=== PATIENT | female | born 1995 | race Caucasian/White ===

== ENCOUNTER 2023-12-26 12:04 | Emergency (ER) | payer OTHER ==
[~2023-12-26] VITALS: Ht 162.6 cm; Wt 77.1 kg
[2023-12-26 12:05] VITALS: BP_SYST 114; PULSE 67; RESP 18; TEMP 97.8; O2SAT 98
[2023-12-26 12:54] LABS: BASOPHILS % (AUTO) 0.5 % (0.0-2.0); EOSINOPHILS # (AUTO) 0.1 K/uL (0.0-0.4); EOSINOPHILS % (AUTO) 1.2 % (0.0-4.0); HEMATOCRIT 37.7 % (36-48); HEMOGLOBIN 13.1 g/dL (12.0-16.0); LYMPHOCYTES # (AUTO) 2.3 K/uL (1.0-5.5); LYMPHOCYTES % (AUTO) 43.2 % (20.5-51.5); MEAN CORPUSCULAR HEMOGLOBIN 32 pg (27-31); MEAN CORPUSCULAR HGB CONC 35 % (32-36); MEAN CORPUSCULAR VOLUME 91 fL (79.0-98.0); MONOCYTES # (AUTO) 0.3 K/uL (0.0-1.0); MONOCYTES % (AUTO) 5.7 % (1.7-9.3); NEUTROPHILS # (AUTO) 2.6 K/uL (1.8-7.7); NEUTROPHILS % (AUTO) 49.4 % (40.0-70.0); PLATELET COUNT (AUTO) 266 K/uL (130-430); RED BLOOD CELL COUNT(AUTO) 4.14 MIL/uL (4.2-6.2); RED CELL DISTRIBUTION WIDTH 13.1 % (9.0-15.0); WHITE BLOOD COUNT (AUTO) 5.3 K/uL (4.8-10.8)
[2023-12-26 13:10] LABS: CALCIUM 8.7 mg/dL (8.4-11.0); CREATININE 0.7 mg/dL (0.55-1.30); POTASSIUM 3.8 mmol/L (3.5-5.1)
[2023-12-26 13:14] LABS: PROTHROMBIN TIME 9.9 SECS (9.5-12.5)
[2023-12-26] MEDS ORDERED: DOCU-144 PO (14:58)
[2023-12-26 15:10] VITALS: BP_SYST 119; PULSE 75; RESP 18; TEMP 97; O2SAT 98
== END 2023-12-26 15:09 | disposition home or self-care (01) ==
LOC: SED 12:04
DX: K92.2 Gastrointestinal hemorrhage, unspecified (principal); Z79.899 Other long term (current) drug therapy
CPT/HCPCS: 36415; 76376; 80048; 81025; 85025; 85610-TC; 85730-TC; 86886; 86900; 86901; 99284

== ENCOUNTER 2024-03-30 22:28 | Emergency (ER) | payer OTHER ==
[~2024-03-30] VITALS: Ht 162.6 cm; Wt 54.4 kg
[~2024-03-30 22:28] MED LIST: DOCU-144 PO
[2024-03-30 22:41] VITALS: BP_SYST 127; PULSE 77; RESP 16; TEMP 97.8; O2SAT 99
[2024-03-31] MEDS: ACETAMINOPHEN 325 MG TABLET PO ONE (00:06)
[2024-03-31] MEDS: IBUPROFEN 600 MG TABLET PO ONE (00:07)
[2024-03-31] MEDS ORDERED: CYCL10TA24 PO (01:45)
[2024-03-31 01:54] VITALS: BP_SYST 135; PULSE 74; RESP 16; TEMP 97.8; O2SAT 99
== END 2024-03-31 01:56 | disposition home or self-care (01) ==
LOC: SED 22:28
DX: S39.012A Strain of muscle, fascia and tendon of lower back, initial encounter (principal); S76.912A Strain of unspecified muscles, fascia and tendons at thigh level, left thigh, initial encounter; E03.9 Hypothyroidism, unspecified
CPT/HCPCS: 72110; 73552; 81025; 99284

== ENCOUNTER 2024-05-05 11:39 | Emergency (ER) | payer OTHER ==
[~2024-05-05] VITALS: Ht 162.6 cm; Wt 74.8 kg
[~2024-05-05 11:39] MED LIST changes: +CYCL10TA24 PO
[2024-05-05 11:40] VITALS: BP_SYST 114; PULSE 65; RESP 18; TEMP 98.1; O2SAT 98
[2024-05-05] MEDS: IBUPROFEN 800 MG TABLET PO ONE (12:04)
[2024-05-05] MEDS: HYDROcodone/ACETAMIN 10-325 MG TAB PO ONE (12:05)
[2024-05-05] MEDS ORDERED: HYDR-3917 PO (13:50)
[2024-05-05] MEDS ORDERED: IBUP-1969 PO (13:50)
[2024-05-05 14:05] VITALS: BP_SYST 114; PULSE 65; RESP 18; TEMP 98.1; O2SAT 98
== END 2024-05-05 14:04 | disposition home or self-care (01) ==
LOC: SED 11:39
DX: S16.1XXA Strain of muscle, fascia and tendon at neck level, initial encounter (principal); S39.012A Strain of muscle, fascia and tendon of lower back, initial encounter; M25.512 Pain in left shoulder; Z79.899 Other long term (current) drug therapy; Z79.2 Long term (current) use of antibiotics; V89.2XXA Person injured in unspecified motor-vehicle accident, traffic, initial encounter; Y93.89 Activity, other specified; Y92.89 Other specified places as the place of occurrence of the external cause; Y99.8 Other external cause status
CPT/HCPCS: 71045; 72040; 72100; 81025; 99284